=== PATIENT | female | born 1990 | race Two or more races ===

== ENCOUNTER 2022-05-07 04:11 | Emergency (ER) | payer OTHER ==
[~2022-05-07] VITALS: Ht 160 cm; Wt 59.0 kg
[2022-05-07] MEDS ORDERED: [UNRECOGNIZED DRUG - OTHER] (04:35)
[2022-05-07] MEDS ORDERED: ZOFRAN8 MG (04:35)
[2022-05-07] MEDS ORDERED: PRENATAL + DHA1 EAC1 (04:35)
== END 2022-05-07 11:41 | disposition home or self-care (01) ==
LOC: ER 04:11
DX: O21.8 Other vomiting complicating pregnancy (principal); Z3A.12 12 weeks gestation of pregnancy; E86.0 Dehydration; Z91.013 Allergy to seafood; R10.9 Unspecified abdominal pain